=== PATIENT | male | born 1980 | race Hispanic/Latino ===

== ENCOUNTER → 2018-03-28 | Outpatient (CLI) | payer BC | LOC: GMAM 09:02 | PROVIDERS: ATTEND Family Medicine | DX: Z00.00 Encounter for general adult medical examination without abnormal findings (principal); E83.52 Hypercalcemia ==

== ENCOUNTER 2019-08-06 18:28 | Inpatient (IN) | payer BC ==
[2019-08-06] MEDS ORDERED: ONDANSETRON INJ 4 MG/2 ML VIAL IV ONE (18:37)
[2019-08-06] MEDS ORDERED: SODIUM CHLORIDE 0.9% 1000ML 1,000 ML IVS ONE ×2 (18:37→19:32)
--- NOTE | 2019-08-06 18:40 | ED.PDOC ---
History of Present Illness - General Chief Complaint: GI Problem Time Seen by Provider: 08/06/19 18:33 Source: patient, RN notes reviewed, Vital Signs reviewed Exam Limitations: no limitations - History of Present Illness Initial Comments: "I think I have food poisoning" Pt is a 39 yo male that presents to ED for 24 hour h/o NVD. States he ate at [employer] yesterday and the food was cold and tasted funny. A few hours later, he developed crampy abdominal pain with vomiting and diarrhea that has been persistent. Now has cramping of muscles and feels he is dehydrated. Reports subjective fever yesterday and decreased UOP today. Denies sick contacts or travel. Allergies/Adverse Reactions: Allergies NO KNOWN ALLERGY Allergy (Verified 12/03/14 16:28) Home Medications: Ambulatory Orders Amphetamine-Dextroamphetamine [Amphetamine/Dextroampheta 15 mg] 15 mg PO DAILY PRN 08/06/19 BuPROPion SR [Wellbutrin SR] 150 mg PO BID 08/06/19 Icosapent Ethyl [Vascepa] 1 gm PO BID 08/06/19 Lisinopril 5 mg PO DAILY 08/06/19 Rosuvastatin Calcium 40 mg PO DAILY 08/06/19 Sitagliptin-Metformin HCl [Janumet] 1 tab PO BID 08/06/19 Review of Systems - Review of Systems Constitutional: States: malaise. Denies: chills EENTM: Denies: blurred vision, throat pain Respiratory: Denies: cough, short of breath Cardiology: Denies: chest pain, edema, syncope Gastrointestinal/Abdominal: States: abdominal pain, diarrhea, nausea, vomiting Genitourinary: Denies: dysuria, frequency Musculoskeletal: States: muscle pain. Denies: back pain, muscle stiffness Skin: States: no symptoms reported Neurological: Denies: headache, paresthesia Endocrine: States: no symptoms reported All other Systems: Reviewed and Negative Past Medical History (General) - Patient Medical History Hx Hypertension: Yes Hx Gastroesophageal Reflux: Yes - Vaccination History Hx Tetanus, Diphtheria Vaccination: Yes - unknown date Hx Influenza Vaccination: Yes - 2013 Hx Pneumococcal Vaccination: No - Social History Hx Tobacco Use: Yes Family Medical History - Family History Father Family History: No Known Physical Exam - Physical Exam General Appearance: Alert, Comfortable, No apparent distress Ears, Nose, Throat: other - dry oral mucosa Neck: non-tender, full range of motion, supple Respiratory: chest non-tender, lungs clear, normal breath sounds, no respiratory distress, no accessory muscle use Cardiovascular/Chest: regular rate, rhythm, no edema, no murmur Gastrointestinal/Abdominal: other - soft, NTTP in all quadrants, no guarding Extremity: non-tender, normal inspection, no calf tenderness Neurologic: no motor/sensory deficits, alert, normal mood/affect Skin Exam: normal color, warm/dry Progress - Progress Progress: 08/06/19 19:58 D/W Louis Manrique, hospitalist. Will admit for IVF for MARIZOL, dehydration and electrolyte abnormality. Pt presents to ED with 24 hour h/o vomiting and diarrhea after eating at restaurant. Abd is soft with no sign of acute abdomen. Feels improved with IVF. Creatinine 3.0 today, no h/o renal issues. Mild electrolyte abnormality. CK normal with no sign of rhabdo. Pt agrees with admission for IVF and recheck BMP in AM. Departure - Departure Clinical Impression: MARIZOL (acute kidney injury), Hyponatremia, Hypokalemia, Dehydration, Gastroenteritis Time of Disposition: 20:01 Disposition: Admit Patient Condition: Fair Departure Forms: ED Discharge - Pt. Copy, Patient Portal Self Enrollment Diet: full liquid diet Referrals: Faraz Simon MD [Primary Care Provider] - 1-2 Weeks Home Medications: Ambulatory Orders Amphetamine-Dextroamphetamine [Amphetamine/Dextroampheta 15 mg] 15 mg PO DAILY PRN 08/06/19 BuPROPion SR [Wellbutrin SR] 150 mg PO BID 08/06/19 Icosapent Ethyl [Vascepa] 1 gm PO BID 08/06/19 Lisinopril 5 mg PO DAILY 08/06/19 Rosuvastatin Calcium 40 mg PO DAILY 08/06/19 Sitagliptin-Metformin HCl [Janumet] 1 tab PO BID 08/06/19 Comments: Will admit for IIVF due to MARIZOL secondary to dehydration from food poisoning Decision To Admit - Decistion To Admit Decision to Admit Date: 08/06/19 Decision to Admit Time: 20:00
--- NOTE | 2019-08-06 20:24 | HP ---
SUPERVISING PHYSICIAN: Kamron Nair MD CHIEF COMPLAINT: Nausea and vomiting. HISTORY OF PRESENT ILLNESS: This is a 39-year-old male patient who states that he ate some [employer] a day ago. Since that time, he developed some nausea, vomiting and subsequently some diarrhea. He had multiple episodes. Associated with the vomiting, he was also having muscle cramps in his back. The patient denies any fever. He thinks he got food poisoning because when he bit into the chicken, it was cold in temperature. In the Emergency Room, he was evaluated and had labs done. The labs were consistent with acute kidney injury with BUN 32 and creatinine 3.06. He also had low potassium at 3.3 and sodium 128. There are mild elevations in his transaminases and AST 61, ALT 69. He was given a couple of liters in the ER, but referred for observation admission due to the acute kidney injury. At the time of examination, the patient is alert, oriented. He does seem weak. No complaints of nausea at this time after he has gotten some Zofran in the ER. PAST MEDICAL HISTORY: 1. Diabetes mellitus, type 2. 2. Hypertension. 3. Gastroesophageal reflux disease. 4. Hyperlipidemia. 5. Depression. PAST SURGICAL HISTORY: 1. Left inguinal hernia repair. MEDICATIONS: 1. Adderall 15 mg p.o. daily. 2. Bupropion SR 1 to 2 mg p.o. b.i.d. 3. Vascepa 1 gram p.o. b.i.d. 4. Lisinopril 5 mg p.o. daily. 5. Crestor 40 mg p.o. daily. 6. Janumet 1 tab p.o. b.i.d. ALLERGIES: NO KNOWN DRUG ALLERGIES. FAMILY HISTORY: Reviewed and noncontributory. SOCIAL HISTORY: He does use tobacco, social alcohol, no illicit drugs. REVIEW OF SYSTEMS: CONSTITUTIONAL: No fever or chills. No recent weight loss or weight gain. Positive for malaise. HEENT: No headaches, vision changes, ear pain, nasal congestion or throat pain. RESPIRATORY: No cough, hemoptysis or pleuritic chest pain. CARDIOVASCULAR: No chest pain, palpitations or peripheral edema. GASTROINTESTINAL: Positive for nausea, vomiting, diarrhea and some abdominal discomfort. GENITOURINARY: No dysuria, frequency or flank pain. MUSCULOSKELETAL: Positive for muscle cramps, but no joint pain or joint swelling. ENDOCRINE: No polydipsia, polyuria or polyphagia. No heat or cold intolerance. SKIN: No rashes, lesions or wounds. NEUROLOGIC: No syncope, paresthesias or seizures. PHYSICAL EXAMINATION: VITAL SIGNS: Blood pressure 100/64. Heart rate 102. Respiratory rate 18. Temperature 99.2. Oxygen saturation 98%. GENERAL: Mr. Mcguire is a 39-year-old male patient in no active distress currently. NEUROLOGIC: The patient is alert. LUNGS: Clear to auscultation bilaterally. CARDIOVASCULAR: Regular rate and rhythm. Normal S1, S2. ABDOMEN: Soft with some mild epigastric tenderness to palpation. GENITOURINARY: Deferred. EXTREMITIES: Lower extremities with no edema. LABORATORY: Labs as discussed in history of present illness. ASSESSMENT: 1. Acute gastroenteritis. 2. Dehydration. 3. Acute kidney injury secondary to #1 and #2. 4. Diabetes mellitus, type 2. 5. Hyperlipidemia. 6. Hypertension. 7. Electrolyte imbalance. PLAN: At this time, the patient was placed on IV fluids with potassium. I will check a magnesium level as well and replace as necessary. DVT prophylaxis will be early ambulation. The patient is ambulatory and having no issues. We will resume his home medications as well. I am going to check his glucoses, however, I will not place him on a sliding scale at this time, but just continue his home medications. He can start with a clear liquid diet and advance as tolerated. I will recheck his labs in the morning. He did have a fever in the ER, so will empirically treat for possible food poisoning. #[id number] [facility]
[2019-08-06] MEDS ORDERED: SODIUM CHLORIDE 0.9% (FLUSH) 10 ML SYG IV PRN (20:56)
[2019-08-06] MEDS ORDERED: GLUCAGON INJ 1 MG VIAL SUBCU PRN (20:58)
[2019-08-06] MEDS ORDERED: DEXTROSE 50% 25 GM/50 ML SYG IV PRN (20:58)
[2019-08-06] MEDS ORDERED: ONDANSETRON INJ 4 MG/2 ML VIAL IV PRN (20:59)
[2019-08-06] MEDS ORDERED: NON-FORMULARY MEDICATION 1 EA MIS (Sitagliptin-Metformin Hcl [Janumet 50-1000 Mg] 1 TAB) PO SCH (21:00)
[2019-08-06] MEDS ORDERED: IV SET AND CAP CHANGE INJ INJ SCH (21:00)
[2019-08-06] MEDS: KCL 20 MEQ/NS 1,000 ML IVS PRN (21:28)
[2019-08-06] MEDS: ICOSAPENT ETHYL 1 GM PO SCH (21:32)
[2019-08-06] MEDS: metFORMIN HCL 500 MG TAB PO SCH (21:32)
[2019-08-06] MEDS: SITagliptin 50 MG TAB PO SCH (21:33)
[2019-08-07] MEDS ORDERED: PIPERACILLIN/TAZOBACTAM 3.375 GM VIAL IVPB ONE ×2 (00:54→09:15)
[2019-08-07] MEDS ORDERED: SODIUM CHLORIDE 0.9% 100ML 100 ML IVPB ONE ×2 (00:54→09:15)
[2019-08-07] MEDS: ACETAMINOPHEN 325 MG TAB PO PRN ×3 (01:02→20:06)
[2019-08-07] MEDS: PIPERACILLIN/TAZOBACTAM 3.375 GM in SODIUM CHLORIDE 0.9% 100ML 100 ML IVPB SCH ×2 (01:27→14:28)
[2019-08-07] MEDS ORDERED: MAGNESIUM SULFATE PREMIX 4GM 4 GM in PREMIX BAG 1 BAG IVPB ONE (08:22)
[2019-08-07] MEDS ORDERED: POTASSIUM CHLORIDE 20 MEQ TAB PO ONE (08:40)
[2019-08-07] MEDS ORDERED: NON-FORMULARY MEDICATION 1 EA MIS (Rosuvastatin Calcium [Rosuvastatin Calcium] 40 MG) PO SCH (09:00)
[2019-08-07] MEDS: CIPROFLOXACIN 500 MG TAB PO SCH ×2 (09:24→20:05)
[2019-08-07] MEDS: LISINOPRIL 5 MG TAB PO SCH (09:25)
[2019-08-07] MEDS: [UNRECOGNIZED DRUG - OTHER] PO SCH (09:25)
[2019-08-07] MEDS: AMPHETAMINE DEXTROAMPHETAMINE PO SCH (09:25)
[2019-08-07] MEDS: SITagliptin 50 MG TAB PO SCH ×2 (09:25→20:05)
[2019-08-07] MEDS: metFORMIN HCL 500 MG TAB PO SCH ×2 (09:25→20:06)
[2019-08-07] MEDS: ATORVASTATIN 20 MG TAB PO SCH (09:35)
--- NOTE | 2019-08-07 10:14 | PN ---
SUPERVISING PHYSICIAN: Kamron Nair MD DATE: 08/07/19 SUBJECTIVE: The patient had multiple bowel movements over the night. He did not sleep very well and still generally does not feel good. He did have a fever last night as well. OBJECTIVE: VITAL SIGNS: Blood pressure 100/62, heart rate 98, respiratory rate 16, temperature 98.7, oxygen saturation 97%. GENERAL: Mr. Mcguire is a 39-year-old male patient who is in no distress. NEUROLOGIC: The patient is alert. LUNGS: Clear. CARDIOVASCULAR: Regular rate and rhythm. Normal S1, S2. ABDOMEN: Soft with some mild discomfort in the lower abdominal area, mainly due to cramping. EXTREMITIES: Lower extremities with no edema. LABORATORY: Labs done this morning show sodium 129, potassium 3.1, chloride 99, CO2 18, BUN 32, creatinine 1.81. Glucose 123, calcium 7.5, AST improved from 61 to 47, ALT improved from 69 to 51. Blood cultures and stool testing pending at this time. ASSESSMENT: 1. Acute gastroenteritis, possibly secondary to food poisoning. 2. Dehydration. 3. Acute kidney injury secondary to #1 and #2. 4. Diabetes mellitus, type 2. 5. Hyperlipidemia. 6. Hypertension. 7. Electrolyte imbalance. PLAN: He has had some improvement in his renal function. We will continue the current IV fluids. I have given him some magnesium and will give additional potassium this morning given the hypokalemia. Last night, he ran a fever, so we did some blood cultures and sent off stool sample as well. I placed him on Zosyn and will also place him on p.o. Cipro empirically treating for Salmonella. The patient does meet inpatient criteria, so we will change his status from outpatient to inpatient and reevaluate labs and cultures as they become available. #[id number] [facility]
[2019-08-07] MEDS ORDERED: LACTATED RINGERS 1,000 ML IVS ONE (11:42)
[2019-08-07] MEDS ORDERED: LACTATED RINGERS 1,000 ML ONE (11:51)
[2019-08-07] MEDS: KCL 20 MEQ/NS 1,000 ML IVS PRN ×2 (11:53→18:59)
[2019-08-07] MEDS: ICOSAPENT ETHYL 1 GM PO SCH ×2 (19:12→20:08)
[2019-08-08] MEDS: KCL 20 MEQ/NS 1,000 ML IVS PRN ×3 (00:30→20:02)
[2019-08-08] MEDS: PIPERACILLIN/TAZOBACTAM 3.375 GM in SODIUM CHLORIDE 0.9% 100ML 100 ML IVPB SCH ×2 (00:30→14:11)
[2019-08-08] MEDS ORDERED: LOPERAMIDE CAP 2 MG CAP PO ONE (00:43)
[2019-08-08] MEDS ORDERED: POTASSIUM CHLORIDE 20 MEQ TAB PO ONE ×2 (09:13→14:00)
[2019-08-08] MEDS: AMPHETAMINE DEXTROAMPHETAMINE PO SCH (09:41)
[2019-08-08] MEDS: [UNRECOGNIZED DRUG - OTHER] PO SCH (09:41)
[2019-08-08] MEDS: SITagliptin 50 MG TAB PO SCH ×2 (09:44→20:02)
[2019-08-08] MEDS: CIPROFLOXACIN 500 MG TAB PO SCH ×2 (09:44→20:02)
[2019-08-08] MEDS: metFORMIN HCL 500 MG TAB PO SCH ×2 (09:45→20:02)
[2019-08-08] MEDS: LISINOPRIL 5 MG TAB PO SCH (09:45)
[2019-08-08] MEDS: ATORVASTATIN 20 MG TAB PO SCH (09:46)
[2019-08-08] MEDS: ICOSAPENT ETHYL 1 GM PO SCH ×2 (09:46→20:02)
[2019-08-08] MEDS ORDERED: DIPHENOXYLATE HCL/ATROPINE 2.5 MG TAB PO ONE (12:12)
--- NOTE | 2019-08-08 13:26 | PN ---
SUPERVISING PHYSICIAN: Kamron Nair MD DATE: 08/08/19 SUBJECTIVE: The patient is sitting up in bed. He has no complaints of shortness of breath or chest pain. He does have some mild nausea if he drinks too many fluids. He is also having diarrhea about every 20 to 30 minutes. He did receive some Imodium during the night last night and it kept him from having stool for about an hour and 15 minutes but he is very sleepy and would like to get some rest. OBJECTIVE: VITAL SIGNS: Temperature 97.8, T-max 24 hours is 100.6, blood pressure 123/78, heart rate 82, respiratory rate 18, oxygen saturation 97% on room air. . RESPIRATORY: Essentially clear to auscultation bilaterally. CARDIAC: Regular rate and rhythm. ABDOMEN: Soft, nondistended, very mildly but diffusely tender. NEUROLOGIC: Awake, alert and oriented x3. LABORATORY: WBCs 4,400, hemoglobin 14.6, hematocrit 41.8. Blood sugars have run between 98 and 77. Sodium slightly low but improved to 131 with a potassium of 3.1 Chloride 100, carbon dioxide 22. BUN 9, creatinine normalized at 0.77. Calcium 7.8, magnesium 2.2. Stool for occult is negative. Giardia stool listing is pending. Parasite is pending. O&T concentrate is pending. Stool culture is pending. Rotavirus antigen is negative. Positive for stool leukocytes. C-difficile antigen and toxin are both negative. Preliminary blood cultures show no growth at 24 hours. Urine culture is pending. All other labs and films have been reviewed via the EMR. ASSESSMENT: 1. Acute gastroenteritis, possibly secondary to food poisoning. 2. Dehydration. 3. Acute kidney injury secondary to #1 and #2, improving. 4. Diabetes mellitus, type 2. 5. Hyperlipidemia. 6. Hypertension. 7. Electrolyte imbalance. PLAN: We will continue present supportive care. I have given him some supplemental potassium today and decreased his IV fluids. I have also ordered some Lomotil so he can get some rest. Will monitor his cultures closely. I will also repeat his labs in the morning. His diet has been advanced to a full liquid and hopefully he can tolerate that to the point we can start a bland diet tomorrow. We are awaiting his salmonella results as well as his other cultures. We will continue to monitor him closely and follow as needed. #[id number] [facility]
[2019-08-08] MEDS: DIPHENOXYLATE HCL/ATROPINE 2.5 MG TAB PO PRN ×2 (17:02→22:12)
[2019-08-09] MEDS: PIPERACILLIN/TAZOBACTAM 3.375 GM in SODIUM CHLORIDE 0.9% 100ML 100 ML IVPB SCH (00:30)
[2019-08-09] MEDS: DIPHENOXYLATE HCL/ATROPINE 2.5 MG TAB PO PRN ×3 (02:12→10:11)
[2019-08-09] MEDS: SITagliptin 50 MG TAB PO SCH (08:29)
[2019-08-09] MEDS: ATORVASTATIN 20 MG TAB PO SCH (08:30)
[2019-08-09] MEDS: CIPROFLOXACIN 500 MG TAB PO SCH (08:30)
[2019-08-09] MEDS: metFORMIN HCL 500 MG TAB PO SCH (08:30)
[2019-08-09] MEDS: LISINOPRIL 5 MG TAB PO SCH (08:30)
[2019-08-09] MEDS: ICOSAPENT ETHYL 1 GM PO SCH (08:59)
[2019-08-09] MEDS: AMPHETAMINE DEXTROAMPHETAMINE PO SCH (08:59)
[2019-08-09] MEDS: [UNRECOGNIZED DRUG - OTHER] PO SCH (08:59)
[2019-08-09] MEDS ORDERED: PIPERACILLIN/TAZOBACTAM 3.375 GM in SODIUM CHLORIDE 0.9% 100ML 100 ML IVPB SCH (09:00)
[2019-08-09] MEDS ORDERED: POTASSIUM CHLORIDE 20 MEQ TAB PO SCH (09:30)
[2019-08-09] MEDS ORDERED: BIFIDOBACTERIUM INFANTIS 4 MG CAP PO SCH (11:30)
[2019-08-09] MEDS ORDERED: POTASSIUM CHLORIDE 20 MEQ TAB PO ONE (12:30)
[2019-08-09 12:36] VITALS: BP 127/78; TEMP 97.8; O2SAT 100
--- NOTE | 2019-08-13 08:34 | DS ---
SUPERVISING PHYSICIAN: Kamron Nair MD DISCHARGE DIAGNOSES: 1. Acute gastroenteritis, possibly secondary to food poisoning with concerns for salmonella.. 2. Dehydration, resolved. 3. Acute injury secondary to #1 and #2, resolved. 4. Diabetes mellitus, type 2. 5. Hyperlipidemia. 6. Hypertension. 7. Electrolyte imbalance, improved but continues to have mild hypokalemia. HISTORY OF PRESENT ILLNESS: This is a 39-year-old male patient came to the Emergency Room stating he had some [employer] the day before admission. Shortly thereafter, he did work outside quite a bit and developed some nausea, vomiting and subsequent diarrhea. He had multiple episodes as well as the vomiting and was also having muscle cramps in his back. He denied any fever. He thinks he got food poisoning because when he bit into the chicken, it was cold in temperature as well as somewhat pink. In the Emergency Room he was evaluated and labs were done. He was given Zosyn and ciprofloxacin and that was continued when he was admitted to the Floor. The labs were consistent with acute kidney injury with BUN 32 and creatinine 3.06. He also had low potassium at 3.3 and sodium of 128. There are mild elevations in his transaminases and AST was 61, ALT 69. He was given a couple of liters of fluid in the ER and admitted to the hospital for acute kidney injury. He was admitted in stable condition. HOSPITAL COURSE: He was given IV fluids and placed on clear liquids, SCDs for DVT prophylaxis and he was encouraged to ambulate as much as possible. He is diabetic and was placed on sliding scale insulin. His home medications were restarted. He did continue to have diarrhea-like bowel movements over the next several days. He was having about 12 to 20 stools daily. Stool studies were ordered. His diet was closely advanced. He did have to have several potassium and magnesium supplementations. After approximately 3-1/2 days in the hospital, he was given some Lomotil to help with his diarrhea. Today, he has continued to be stable. His diet was advanced to a bland diet and he will be discharged home today in stable condition. LABORATORY: His initial WBCs were 6.2 and on discharge were 4,000. His hemoglobin and hematocrit on admission were 17.5 and 50.2, on discharge was 13.6 and 39.3. Sodium was low on admission at 128 but after IV fluids it was 135. Potassium has ranged from 3 to 3.4, chloride 94 on admission, today is 104. BUN was 32 and creatinine 3.06 on admission, today his BUN is 6 with creatinine of 0.63. Magnesium was as low as 1.3, today is 2.2. Liver functions normalized and are within normal limits. Urinalysis showed 100 of urine protein, a trace of intact urine blood, small amount of urine bilirubin and 10 to 20 urine WBCs. Stool for occult was negative. Giardia, parasites and O&P and stool cultures are still pending as are his salmonella results. They will not be in until Monday. He was positive for stool leukocytes and his Clostridium difficile was negative, both toxin and antigen. Blood cultures were negative after 3 days but are pending results. Urine culture is pending results. RADIOLOGY: There are no radiology reports. DISCHARGE PLAN: The patient will be discharged home in stable condition. He is to continue with a bland diet as tolerated. He is also to increase his activity as tolerated. He has a followup appointment with Dr. Simon on 08/13/19 at 3:00 P.M. At that time, he will need to go over his stool results including his culture and salmonella results. He can take Imodium as needed foe diarrhea and he is to keep well-hydrated. In addition to his home medications. I have continued with 2 additional days of ciprofloxacin and he is to use a probiotic twice a day. He is to return to the hospital or followup up Dr. Simon for any problems or complications. DISCHARGE MEDICATIONS: 1. Janumet. 2. Rosuvastatin. 3. Lisinopril. 4. Amphetamine-Dextroamphetamine. 5. Vascepa. 6. Wellbutrin. 7. Align. 8. Ciprofloxacin. #[id number] [facility]
== END 2019-08-09 15:54 | disposition home or self-care (01) | DRG 683 ==
LOC: ER 18:28 → MS 20:23 → OBSVTOIN 20:23
PROVIDERS: ADMIT Nurse Practitioner; ATTEND Nurse Practitioner Acute Care
DX: N17.9 Acute kidney failure, unspecified (principal); E87.1 Hypo-osmolality and hyponatremia; A02.0 Salmonella enteritis; E86.0 Dehydration; E11.9 Type 2 diabetes mellitus without complications; E78.5 Hyperlipidemia, unspecified; I10 Essential (primary) hypertension; E87.6 Hypokalemia; E83.42 Hypomagnesemia; K21.9 Gastro-esophageal reflux disease without esophagitis; F32.9 Major depressive disorder, single episode, unspecified; Z79.899 Other long term (current) drug therapy

== ENCOUNTER → 2020-03-02 | Outpatient (CLI) | payer BC | LOC: GMAM 17:23 | PROVIDERS: ATTEND Family Medicine | DX: B35.1 Tinea unguium (principal) ==